=== PATIENT | female | born 1995 | race Caucasian/White ===

== ENCOUNTER → 2018-11-23 11:53 | Observation (INO) ==
[2018-11-23 11:53] LABS: Bilirubin,Urine Negative (Negative); Blood,Urine Negative (Negative); Clarity,Urine Clear (Clear); Color,Urine Yellow (Yellow); Glucose,Urine (UA) Normal (Normal); Ketones,Urine Negative (Negative); Leukocyte Esterase,Urine Negative (Negative); Nitrite,Urine Negative (Negative); Protein,Urine Negative (Neg-Trace); Specific Gravity,Urine 1.018 (1.010-1.025); Urobilinogen,Urine Normal (Normal)
[2018-11-23 12:03] LABS: Amphetamine Screen,Urine Negative ng/mL (Cutoff=1000); Barbiturate Screen,Urine Negative ng/mL (Cutoff=200); Benzodiazepines Screen,Urine Negative ng/mL (Cutoff=200); Cannabinoid Screen,Urine Negative ng/mL (Cutoff = 50); Cocaine Screen,Urine Negative ng/mL (Cutoff= 300); Opiate Screen,Urine Negative ng/mL (Cutoff=300); Phencyclidine Screen,Urine Negative ng/mL (Cutoff=25)
== END | disposition home or self-care (01) ==
LOC: 1NENULAB
PROVIDERS: ADMIT Advanced Practice Midwife; ATTEND Advanced Practice Midwife

== ENCOUNTER 2018-11-23 21:02 | Inpatient (IN) ==
[2018-11-23] MEDS: *HR* Nalbuphine 10 MG/ML AMPUL IV PRN ×2 (17:05→20:01)
--- NOTE | 2018-11-23 19:43 | OB/GYN Progress Note ---
Date of Encounter: 11/23/18
[~2018-11-23 21:02] MED LIST: Ringers Solution, Lactated 1,000 ML IVC SCH
[2018-11-23] MEDS ORDERED: Epidural Premix (fent/bupiv) 110 ML EP ONE (21:13)
[2018-11-23] MEDS ORDERED: Lidocaine 1% 20 ML MDV INFILT PRN (21:17)
[2018-11-23] MEDS ORDERED: Metoclopramide 10 MG/2 ML VIAL IVP PRN (21:17)
[2018-11-23] MEDS ORDERED: Famotidine 20 MG/2 ML VIAL IVP PRN (21:17)
[2018-11-23] MEDS ORDERED: Naloxone 0.4 MG/ML INJ IVP PRN (21:17)
[2018-11-23] MEDS ORDERED: Ondansetron 4 MG/2 ML VIAL IVP PRN (21:17)
[2018-11-23] MEDS ORDERED: Penicillin G Potassium 5,000,000 UNIT in 0.9 % Sodium Chloride Mini Bag 100 ML IVPB ONE (21:17)
--- NOTE | 2018-11-23 21:24 | Anesthesia Evaluation PreOp ---
Date of Encounter: 11/23/18 Time of Encounter: 21:11 - Past History Planned Operation: del, G1, 38wk+, Spont labor Cardiac History: Denies any Significant Hx Pulmonary History: Asthma (no recent comp.) PROBATION MANAGER History: Denies Any Significant HX Other Medical History: Denies Any Significant HX Anesthesia History: No Prior Anesthetic Complications, Past Anesthesia (no known comp) Alcohol Use: none Drug use: none Medications and Allergies Ondansetron ODT [Zofran ODT] 4 mg SL Q6HR #10 tab.rapdis 07/15/16 [Rx] Ferrous Sulfate 325 mg PO DAILY 11/23/18 [History] Pnv95/Ferrous Fumarate/FA [ Vitamin Tablet] 1 tab PO DAILY 11/23/18 [History] Allergy/AdvReac Type Severity Reaction Status Date / Time tree nut Allergy Anaphylaxis Verified 11/23/18 16:34 latex AdvReac Hives Verified 11/23/18 16:34 Anesthesia Exam - HEENT Pupil (Motor): Pupils equal Mallampati: III Teeth: Normal Oral Opening: Greater than 3 - PROBATION MANAGER LOC: Oriented PROBATION MANAGER Motor: Normal RUE, Normal LUE, Normal RLE, Normal LLE, Normal Face PROBATION MANAGER Sensory: Normal: RUE, LUE, RLE, LLE, Face - Cardiac Rhythm: Regular Murmur: None - Pulmonary Breath Sounds: bilateral Clear Respiratory Effort: Symmetrical Anesthesia Assess/Plan ASA Score: 2 Level of consciousness: Cooperative, Oriented Anesthetic Plan: General, Spinal, Epidural Monitoring Plan: Standard Monitors Recovery Plan: PACU
--- NOTE | 2018-11-23 21:25 | OB/GYN History & Physical ---
Date of Encounter: 11/23/18 Time of Encounter: 21:20 Assessment and Plan (1) 38 weeks gestation of Current visit: Yes Status: Acute Admit for labor GBS positive; PRN prophylaxis Consider AROM after second dose of abx May have epidural upon request Anticipate vaginal delivery POC per consult with Dr Shea History of Present Illness Chief complaint: Laboring HPI: Ms. Bustamante is a 23 year old at 38 weeks and 5 days that presents to triage with c/o contractions that have continued since this morning. She states positive movement. She denies headaches, vision changes, epigastric pain, and leaking of fluid. She has had a normal course. She has been seen for her care by Dr Whelan. Labs: GBS positive Blood type A+ HIV unknown Hep B Neg VDRL NR Rubella Immune Past Med Surg Social Fam HX - Past Medical History Medical history: asthma Psychiatric history: anxiety - Past Surgical History Additional surgical history: hip surgery - Social History Smoking Status: Never smoker Smokeless Tobacco Status: No Alcohol use: none Drug use: none - Family History Mother Adopted: No Family Member Ethnicity: Non- Living Status: Still Living Hx Family Cardiac Disorders: No Hx Family Respiratory Disorders: No Hx Family Cancer: No Hx Family GI Disorders: No Hx Family Endocrine Disorder: No Hx Family Neuromuscular Disorders: No Hx Family Neurologic Disorders: No Hx Family HEENT Disorders: No Hx Family Autoimmune Disorders: No Obstetrical History - Pregnancies : 1 Para: 0 Term: 0 : 0 Ab's: 0 Livin Medications and Allergies Ondansetron ODT [Zofran ODT] 4 mg SL Q6HR #10 tab.rapdis 07/15/16 [Rx] Ferrous Sulfate 325 mg PO DAILY 11/23/18 [History] Pnv95/Ferrous Fumarate/FA [ Vitamin Tablet] 1 tab PO DAILY 11/23/18 [History] Allergy/AdvReac Type Severity Reaction Status Date / Time tree nut Allergy Anaphylaxis Verified 11/23/18 16:34 latex AdvReac Hives Verified 11/23/18 16:34 Review of System OB All systems PM: reviewed and no additional remarkable complaints except as stated Exam - Vital Signs Vital signs: Initial Vital Signs Pulse Resp BP 64 16 128/70 11/23/18 21:11 11/23/18 21:11 11/23/18 21:11 - Constitutional Constitutional: well developed, well nourished, no acute distress, average body habitus - HEENT HEENT: Normocephaly, Mucus Membranes Moist - Neck Neck exam: full ROM - Lungs Respiratory exam: CTAB - Cardiovascular Cardiovascular exam: RRR, +S1, +S2 - Abdomen Abdomen: Present: bowel sounds normal, gravid, non tender - Extremities Extremities exam: normal capillary refill, normal inspection, radial pulses palpable and symmetrical Deep Tendon Reflex Grade: 2+ Normal - Vagina Vagina: Present: normal moisture - Cervix Dilation: 6 Effacement: 90 Station: -1 Results Result Diagrams: 11/23/18 16:45 All other labs normal. - VTE Reasons for not Prescribing Prophylaxis: Treatment not Indicated - Low risk for VTE
[2018-11-23] MEDS: Epidural Premix (fent/bupiv) 110 ML EP SCH (21:30)
[2018-11-23 21:35] LABS: Basophils % 0.3 %; Eosinophils % 0.3 %; Hematocrit 42.5 % (35.3-44.9); Hemoglobin 13.6 g/dL (11.5-15.4); Immature Granulocytes % 0.5 % (0-4); Lymphocytes # 1.9 K/mcL (0.6-4.6); Lymphocytes % 14.6 %; Mean Corpuscular Hemoglobin 26.3 pg (28.0-33.3); Mean Corpuscular Volume 82.2 fL (83.0-100.0); Mean Platelet Volume 12.2 fL (9.4-12.4); Monocytes # 1.2 K/mcL (0.0-1.3); Monocytes % 8.9 %; Neutrophils # 9.9 K/mcL (1.6-8.9); Platelet Count 294 K/mcL (140-400); Red Blood Count 5.17 M/mcL (3.82-4.97); Red Cell Distribution Width 18.3 % (11.5-14.5); Segmented Neutrophils % 75.4 %; White Blood Count 13.1 K/mcL (4.3-11.1)
--- NOTE | 2018-11-23 21:53 | Anesthesia Procedures ---
Date of Encounter: 11/23/18 Time of Encounter: 21:31 Procedures: Anesthesia - Epidural/Spinal Patient ID/Chart reviewed: Yes Patient examined: Yes OB Eval: Gestational age: 38 OB Eval: : 1 OB Eval: Contractions: Non-stressed pattern Consent Obtained: Yes Supplemental Oxygen: None/Room Air Site Prep: Aseptic Technique, Sterile prep and drape, 0.5% Chlorhexidine/Alcohol Patient position: upright Local Anesthetic: Lidocaine 1% Amount of Local Anesthetic used: 2 Touhy Needle Gauge: 18 Touhy Needle Depth (cm): 7 Catheter Depth at Skin (cm): 12 Test Dose (1.5% Lido + Epi): Volume given (mls): 4 Test Dose Result: Negative Loading Dose: Other: 10ml from solution Loading Dose Administered: Thru Catheter Infusion Med: 0.125% Bupivacaine w/ 2 mcg/ml Fentanyl Infusion Rate (mls/hr): [address]: Tegaderm, Tape Interspace Used: L3-L4 Loss of Resistance (SUZANNE): Yes (saline) Blood: Yes (heme at skin 4x4 pressure sterile with op-site and silk tape, neg heme in c) CSF: Yes (25g purposeful, no inj) Paresthesia: No Procedure: vss though out procedure, FHR stable per RN's
[2018-11-24] MEDS ORDERED: Oxytocin 20 units/ LR 1000 mL 20 UNIT/1,000 ML BAG IVC SCH ×2 (00:45→11:37)
[2018-11-24] MEDS: Penicillin G Potassium 2,500,000 UNIT in 0.9 % Sodium Chloride 100 ML IVPB SCH ×2 (01:40→06:14)
[2018-11-24] MEDS: Epidural Premix (fent/bupiv) 110 ML EP SCH (02:53)
--- NOTE | 2018-11-24 04:56 | OB Labor Progress Note ---
Date of Encounter: 11/24/18 Time of Encounter: 04:54 Labor Progress Note - Subjective Subjective: Patient resting comfortably with epidural in place - Vital Signs Vital Signs: VSS - Cervix Cervix: 7/85/-1 BBOW - Heart Tones Heart Tones: 155 moderate variability with 15 x 15 accels no decels - [place]: Contractions every 2-4 minutes - Interventions Interventions: AROM for moderate amount of clear fluid; patient and fetus tolerated well - Plan Plan: Continue routine labor management GBS positive; continue PCN prophylaxis Continue to titrate pitocin Anticipate vaginal delivery POC per consult with Dr Shea
--- NOTE | 2018-11-24 09:48 | OB/GYN Procedure Note ---
Delivery - Delivery Date: 11/24/18 Provider: Bryant Johnson Intrapartum events: none Delivery induction: none Delivery monitor: external FHT, external uterine Anesthesia: epidural Quantitated Blood Loss: 300 - (s) Infant A Delivery Date: 11/24/18 Delivery Time: :25 Presentation: vertex Position: OA Route of delivery: Gender: Male Viability: Viable Pounds: 6 Ounces: 9 Weight Gram: 2.985 kg at 1 minute: 9 at 5 mins: 9 Shoulder Dystocia: not encountered Specimens collected: cord blood Placenta: spontaneous Cord: 3 umbilical vessels - Repair Episiotomy: none Laceration Description: Perineal - 2nd Degree - Complications Delivery complications: none Delivery comments: Patient progressed rapidly to complete and pushing. 's head was in the perineum with 2 pushes. The rest the was then delivered with 1 push. Infant cried immediately upon delivery. Infant was passed to nursing in attendance. The cord was clamped cut after 1 minute. Cord blood was obtained. The placenta was then delivered spontaneously and intact. There are no cervical, vaginal or periurethral lacerations noted. There was a second-degree perineal laceration which was repaired with 3-0 Vicryl suture in usual fashion. Patient delivered a male weight is 6 lbs. 9 oz., 2985 g. Apgars are 9 at 1 minute 9 at 5 minutes. Today blood loss is 300 mL. - Disposition Mom disposition: stable in LDR disposition: stable in LDR
[2018-11-24] MEDS ORDERED: Ibuprofen 600 MG TABLET PO PRN (11:37)
[2018-11-24] MEDS ORDERED: Measles/Mumps/Rubella Vacc 0.5 ML VIAL SQ PRN (11:37)
[2018-11-24] MEDS ORDERED: Acetaminophen 325 MG TABLET PO PRN (11:37)
[2018-11-25 08:27] LABS: Basophils % 0.2 %; Eosinophils # 0.2 K/mcL (0.0-0.6); Eosinophils % 1.6 %; Hematocrit 32.6 % (35.3-44.9); Immature Granulocytes % 0.8 % (0-4); Lymphocytes % 15.4 %; Mean Corpuscular HGB Conc 31.6 g/dL (31.6-35.5); Mean Corpuscular Volume 85.3 fL (83.0-100.0); Mean Platelet Volume 12.1 fL (9.4-12.4); Neutrophils # 9.5 K/mcL (1.6-8.9); Platelet Count 232 K/mcL (140-400); Red Blood Count 3.82 M/mcL (3.82-4.97); Red Cell Distribution Width 18.6 % (11.5-14.5); White Blood Count 12.9 K/mcL (4.3-11.1)
[2018-11-25 08:30] LABS: Hemoglobin 10.3 g/dL (11.5-15.4)
[2018-11-25] MEDS ORDERED: Prenatal Vit/FA 1 EACH TABLET PO SCH (09:00)
[2018-11-25 09:40] VITALS: BP 111/65
--- NOTE | 2018-11-25 12:10 | Discharge Summary ---
Date of Encounter: 11/25/18 Time of Encounter: 12:10 - Discharge Diagnosis (1) Vaginal delivery Priority: Primary Status: Acute Comments: Patient meeting day one milestones. Pain well-controlled with prescribed medications. Voiding without difficulty, tolerating regular diet, bleeding light. No bowel movement yet. Anticipate discharge today. Pt desires to use OTC Motrin for discomfort. Discussed control options available prior to discharge. She declines Nexplanon and Depo Provera and plans to discuss other methods at her 4 week appointment. (2) Breast feeding status of mother Priority: Secondary Status: Acute (3) Second degree laceration of perineum, delivered, current hospitalization Priority: Secondary Status: Acute Comments: Ice pack, Dermoplast, Motrin for discomfort. - Discharge Medications Prescriptions: New Acetaminophen [Tylenol] 650 mg PO Q6HR PRN tablet PRN Reason: Mild Pain Ibuprofen [Motrin] 600 mg PO Q6HR PRN tablet PRN Reason: Cramping Continued Pnv95/Ferrous Fumarate/FA [ Vitamin Tablet] 1 tab PO DAILY Ferrous Sulfate 325 mg PO DAILY Discontinued Ondansetron ODT [Zofran ODT] 4 mg SL Q6HR #10 tab.rapdis Home Medications: Ferrous Sulfate 325 mg PO DAILY 11/23/18 [History] Pnv95/Ferrous Fumarate/FA [ Vitamin Tablet] 1 tab PO DAILY 11/23/18 [History] Acetaminophen [Tylenol] 650 mg PO Q6HR PRN tablet 11/25/18 [Rx] Ibuprofen [Motrin] 600 mg PO Q6HR PRN tablet 11/25/18 [Rx] Allergies/Adverse Reactions: Allergy/AdvReac Type Severity Reaction Status Date / Time tree nut Allergy Anaphylaxis Verified 11/23/18 16:34 latex AdvReac Hives Verified 11/23/18 16:34 Data Procedures and tests throughout hospitalization: Laboratory Tests 11/23/18 11/23/18 11/23/18 16:45 22:46 22:46 WBC 13.1 H RBC 5.17 H Hgb 13.6 Hct 42.5 MCV 82.2 L MCH 26.3 L MCHC 32.0 RDW 18.3 H Plt Count 294 MPV 12.2 Immature Gran % 0.5 Seg Neutrophils % 75.4 Lymphocytes % 14.6 Monocytes % 8.9 Eosinophils % 0.3 Basophils % 0.3 Neutrophils # 9.9 H Lymphocytes # 1.9 Monocytes # 1.2 Eosinophils # 0.0 Basophils # 0.0 HIV Ag/Ab Combo Qual Nonreactive VZV IgG Antibody Positive 11/25/18 08:04 WBC 12.9 H RBC 3.82 Hgb 10.3 L D Hct 32.6 L MCV 85.3 MCH 27.0 L MCHC 31.6 RDW 18.6 H Plt Count 232 MPV 12.1 Immature Gran % 0.8 Seg Neutrophils % 74.0 Lymphocytes % 15.4 Monocytes % 8.0 Eosinophils % 1.6 Basophils % 0.2 Neutrophils # 9.5 H Lymphocytes # 2.0 Monocytes # 1.0 Eosinophils # 0.2 Basophils # 0.0 HIV Ag/Ab Combo Qual VZV IgG Antibody Labs on day of discharge: Labs from last 24 hours 11/25/18 08:04 WBC 12.9 H RBC 3.82 Hgb 10.3 L D Hct 32.6 L MCV 85.3 MCH 27.0 L MCHC 31.6 RDW 18.6 H Plt Count 232 MPV 12.1 Immature Gran % 0.8 Seg Neutrophils % 74.0 Lymphocytes % 15.4 Monocytes % 8.0 Eosinophils % 1.6 Basophils % 0.2 Neutrophils # 9.5 H Lymphocytes # 2.0 Monocytes # 1.0 Eosinophils # 0.2 Basophils # 0.0 Date of admission: 11/23/18 21:17 Primary care physician: Arin Blum MD Consults: 11/24/18 11:37 Consult to Professional Nurse [CONS] Routine Comment: Vaginal delivery, consult needed Discharging clinician: Hortencia Ritter Anticipated date of discharge: 11/25/18 - Patient Status Disposition: Home, Self-Care Condition: Good Functional capacity at discharge: independent ambulation Overall status at discharge: patient is progressing back to baseline - Discharge Instructions Follow Up With: Arin Blum MD [Primary Care Provider] - Anabell Whelan [Partnered Physician] - - Diet and Activity Activity: resume usual activities as tolerated Diet: regular diet Hospital Course Reason for admission: active labor Episiotomy: none Laceration: 1st degree Other procedures: none complications: none Discharge diagnosis: IUP at term delivered baby: male Hospital course: Delivery Date: 11/24/18 Provider: Bryant Johnson Intrapartum events: none Delivery induction: none Delivery monitor: external FHT, external uterine Anesthesia: epidural Quantitated Blood Loss: 300 - Infant (s) Infant A Delivery Date: 11/24/18 Infant Delivery Time: : Presentation: vertex Position: OA Route of delivery: Gender: Male Viability: Viable Pounds: 6 Ounces: 9 Weight Gram: 2.985 kg at 1 minute: 9 at 5 mins: 9 Shoulder Dystocia: not encountered Specimens collected: cord blood Placenta: spontaneous Cord: 3 umbilical vessels - Repair Episiotomy: none Laceration Description: Perineal - 2nd Degree - Complications Delivery complications: none Delivery comments: Patient progressed rapidly to complete and pushing. 's head was in the perineum with 2 pushes. The rest the was then delivered with 1 push. cried immediately upon delivery. was passed to nursing in attendance. The cord was clamped cut after 1 minute. Cord blood was obtained. The placenta was then delivered spontaneously and intact. There are no cervical, vaginal or periurethral lacerations noted. There was a second-degree perineal laceration which was repaired with 3-0 Vicryl suture in usual fashion. Patient delivered a male weight is 6 lbs. 9 oz., 2985 g. Apgars are 9 at 1 minute 9 at 5 minutes. Today blood loss is 300 mL. - Disposition Mom disposition: stable in LDR [place] disposition: stable in LDR Time Attestation: Total time spent providing and/or coordinating discharge services: Time Spent: Less than 30 minutes Exam - Constitutional Vitals: Temp Pulse Resp BP Pulse Ox 98.2 F 88 16 111/65 99 11/25/18 08:00 11/25/18 08:00 11/25/18 11:17 11/25/18 08:00 11/25/18 08:00 General appearance IM: A&O X 3, pleasant, no acute distress, answers questions appropriately - Respiratory Respiratory exam: Present: CTAB. Absent: respiratory distress - Cardiovascular Cardiovascular exam IM: Present: RRR, +S1, +S2. Absent: irregular rhythm - GI/Abdominal GI/Abdominal exam IM: normal bowel sounds, soft - Rectal Rectal exam: deferred - External exam: normal external exam Uterine Tone: Firm Uterus Position: At Umbilicus, Midline - Extremities Exam Extremities exam IM: Present: full ROM, normal capillary refill, normal inspection. Absent: calf tenderness - Neurological Exam Neurological exam: alert, normal gait, oriented X3
== END 2018-11-25 13:45 | disposition home or self-care (01) | DRG 807 ==
LOC: 1NENULAB → 1NENUOBS 11-24 11:35
PROVIDERS: ADMIT Advanced Practice Midwife; ATTEND Advanced Practice Midwife